=== PATIENT | female | born 1970 | race Caucasian/White ===

== ENCOUNTER 2017-07-20 15:19 | Outpatient (CLI) | payer BC | END 2017-07-20 15:20 | disposition home or self-care (01) | LOC: BICMAMMO 15:19 | PROVIDERS: ATTEND Obstetrics & Gynecology | DX: Z12.31 Encounter for screening mammogram for malignant neoplasm of breast (principal); Z80.3 Family history of malignant neoplasm of breast | CPT/HCPCS: 77063; 77067 ==

== ENCOUNTER 2018-07-27 07:45 | Outpatient (CLI) | payer BC ==
--- NOTE | 2018-07-27 08:57 | MMO ---
Bilateral MAMMO Bilat Screen [facility]. CLINICAL HISTORY: Patient is 48 years old and is seen for screening. The patient has the following family history of breast cancer: mother, at age 56; maternal aunt, at age 57 and maternal grandmother, at age 60. The patient has no personal history of cancer. The patient has a history of left Excisional Biopsy at age 30 - benign. VIEWS: The views performed were: bilateral craniocaudal with tomosynthesis and bilateral mediolateral oblique with tomosynthesis. FILMS COMPARED: The present examination has been compared to prior imaging studies performed at [facility] on 04/01/2005, and at [facility] on 02/02/2008, 07/01/2009, 06/24/2011, 11/26/2014, 07/14/2016 and 07/20/2017. MAMMOGRAM FINDINGS: There are scattered fibroglandular densities. There are no suspicious masses, suspicious calcifications, or new areas of architectural distortion. IMPRESSION: THERE IS NO MAMMOGRAPHIC EVIDENCE OF MALIGNANCY. A ROUTINE FOLLOW-UP MAMMOGRAM IN 1 YEAR IS RECOMMENDED. THE RESULTS OF THIS EXAM WERE SENT TO THE PATIENT. ACR BI-RADS Category 1 - Negative MAMMOGRAPHY NOTE: 1. A negative mammogram report should not delay a biopsy if a dominant of clinically suspicious mass is present. 2. Approximately 10% to 15% of breast cancers are not detected by mammography. 3. Adenosis and dense breasts may obscure an underlying neoplasm.
== END 2018-07-27 07:46 | disposition home or self-care (01) ==
LOC: BICMAMMO 07:45
PROVIDERS: ATTEND Obstetrics & Gynecology
DX: Z12.31 Encounter for screening mammogram for malignant neoplasm of breast (principal); Z80.3 Family history of malignant neoplasm of breast
CPT/HCPCS: 77063; 77067